=== PATIENT | male | born 1995 | race Caucasian/White ===

== ENCOUNTER 2017-08-26 15:22 | Emergency (ER) | payer OTHER ==
[2017-08-26 15:46] VITALS: BP 119/79; PULSE 70; RESP 18; TEMP 98; O2SAT 95
--- NOTE | 2017-08-26 16:46 | ED PDOC ---
HPI: General Adult Time Seen by Provider: 08/26/17 15:49 Chief Complaint (Nursing): GI Problem Chief Complaint (Provider): Hemorrhoids History Per: Patient History/Exam Limitations: no limitations Onset/Duration Of Symptoms: Hrs Have you had recent travel within the past 21 days to any of the following countries: [place], [place], [place] or [place]?: No Current Symptoms Are (Timing): Still Present Additional History Per: Patient Additional Complaint(s): 22yo male, comes to ER for evaluation of rectal pain and bleeding since 12noon today. Patient states he has a history of hemorrhoids and was evaluated at a clinic yesterday, given Rx anusol cream. Patient is here because he developed rectal bleeding, prompting his visit. Otherwise: (-) vomiting, (-) diarrhea, (- ) fever, (-) abdominal pain, (-) other complaints. Past Medical History Reviewed: Historical Data, Nursing Documentation, Vital Signs Vital Signs: Last Vital Signs Temp 98 F 08/26/17 15:41 Pulse 70 08/26/17 15:41 Resp 18 08/26/17 15:41 BP 119/79 08/26/17 15:41 Pulse Ox 95 08/26/17 17:07 - Medical History PMH: No Chronic Diseases - Surgical History Surgical History: No Surg Hx - Family History Family History: States: No Known Family Hx - Home Medications Home Medications: Ambulatory Orders Medication Instructions Recorded Docusate [Colace] 100 mg PO BID #20 cap 08/26/17 Lidocaine 2% Gel [Xylocaine 2% 1 appl TP TID PRN #1 gel 08/26/17 (Uro-Jet)] - Allergies Allergies/Adverse Reactions: Allergies Allergy/AdvReac Type Severity Reaction Status Date / Time No Known Allergies Allergy Verified 08/26/17 15:40 Review of Systems Constitutional: Negative for: Fever, Chills Gastrointestinal: Positive for: Rectal Pain. Negative for: Nausea, Vomiting, Abdominal Pain, Diarrhea, Hematochezia Physical Exam - Reviewed Nursing Documentation Reviewed: Yes Vital Signs Reviewed: Yes - Physical Exam Comments: GENERAL APPEARANCE: Patient is awake, alert, oriented x 3, in no distress. SKIN: Warm, dry; (-) cyanosis. CHEST AND RESPIRATORY: (-) rales, (-) rhonchi, (-) wheezes; breath sounds equal bilaterally. HEART AND CARDIOVASCULAR: (-) irregularity; (-) murmur, (-) gallop. ABDOMEN AND GI: (-) distention. Bowel sounds active. (-) guarding, (-) rebound , (-) palpable masses, (-) CVA tenderness. 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 (+) 2-3 cm external thrombosed hemorrhoid around 3 o'clock; (+) mild tenderness to palpation, (+) slight bleeding noted upon palpation. NEURO AND PSYCH: Mental status as above; (-) focal findings. - ECG O2 Sat by Pulse Oximetry: 95 (RA) Pulse Ox Interpretation: Normal Medical Decision Making Medical Decision Making: Impression: Hemorrhoids, rectal bleeding Plan: -- Case discussed with ER attending Dr. Ledezma who recommends surgical consult. [id number] Case discussed with residential fee appraiser Dr. Casillas, who recommends conservative treatment, no immediate surgical intervention and to follow up as outpatient. Plan of care discussed with ER attending, who is agreeable with management. Patient informed to continue using Anusol and take medications as prescribed. Advised to follow up with referral provided - surgeon, in 1-2 days without fail. Advised to take medication as prescribed. Return to the emergency room at any time for any new or worsening symptoms. Patient states he fully agrees with and understands discharge instructions. States that he agrees with the plan and disposition. Verbalized and repeated discharge instructions and plan. I have given the patient opportunity to ask any additional questions. Scribe Attestation: Documented by Aysha Christiansen, acting as a scribe for EMMA Stein Provider Scribe Attestation: All medical record entries made by the Scribe were at my direction and personally dictated by me. I have reviewed the chart and agree that the record accurately reflects my personal performance of the history, physical exam, medical decision making, and the department course for this patient. I have also personally directed, reviewed, and agree with the discharge instructions and disposition. Disposition - Clinical Impression Clinical Impression: External hemorrhoid, thrombosed - Patient ED Disposition Is Patient to be Admitted: No Counseled Patient/Family Regarding: Diagnosis, Need For Followup, Rx Given - Disposition Referrals: Lacy Ching MD [Staff Provider] - Disposition: Routine/Home Disposition Time: 16:45 Condition: STABLE Additional Instructions: Continue applying current medication. Take stool softner and apply lidocaine gel as needed for pain. Follow up with a surgeon in 2-3 days for re-evaluation. Return to the ER at any time for any new or worsening symptoms. 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
== END 2017-08-26 17:00 | disposition home or self-care (01) ==
LOC: H.ER 15:22
DX: K64.8 Other hemorrhoids (principal)